=== PATIENT | female | born 1975 | race Native Hawaiian/Other Pacific Islander ===

== ENCOUNTER 2018-05-24 08:13 | Day surgery (SDC) | payer OTHER ==
[2018-05-18 10:03] VITALS: BMI 22.3
[2018-05-24 09:05] VITALS: RESP 18
[2018-05-24] MEDS ORDERED: Lactated Ringer's 1,000 ML IV ONE ×2 (09:15→11:40)
[2018-05-24 09:42] LABS: BASO # 0.1 K/uL (0.0-0.2); BASO % 0.8 % (0.0-2.0); EOS # 0.1 K/uL (0.0-0.7); EOS % 1.6 % (0.0-4.0); HEMOGLOBIN 13.9 g/dL (12.0-16.0); LYMPH # 1.8 K/uL (1.0-4.3); LYMPH % 27.3 % (20.0-40.0); MEAN CELL VOLUME 88.5 fl (81.0-99.0); MEAN PLATELET VOLUME 8.1 fl (7.2-11.7); MONO # 0.4 K/uL (0.0-0.8); MONO % 6.4 % (0.0-10.0); NEUT # 4.1 K/uL (1.8-7.0); NEUT % 63.9 % (50.0-75.0); RBC 4.63 Mil/uL (3.80-5.20); RED CELL DISTRIBUTION WIDTH 13.2 % (11.5-14.5); WHITE BLOOD COUNT 6.5 K/uL (4.8-10.8)
[2018-05-24] MEDS ORDERED: Rocuronium 10 mg/ml (5 ml) ONE (11:00)
[2018-05-24] MEDS ORDERED: Midazolam 2 MG/2 ML VIAL ONE (11:00)
[2018-05-24] MEDS ORDERED: Propofol 10 mg/ml Inj (20 ML) ONE (11:00)
[2018-05-24] MEDS ORDERED: Neostigmine 1:1000 (1 mg/ml) Inj ONE (11:09)
[2018-05-24] MEDS ORDERED: Bupivacaine HCl 0.25% PF (30 ml) Inj IJ ONE ×2 (12:00)
--- NOTE | 2018-05-24 13:20 | PCM.OP ---
Operative Report - Operative Report Date of Surgery/Procedure: 05/24/18 Time of Surgery/Procedure: 12:00 Surgeon: Dr. Jonny Gabriel Precision Dyer: Dr. Hu Cavanaugh Anesthesia/Sedation: general/Dr. Ledesma Pre-Operative Diagnosis: abdominal pain and endometriosis Post-Operative Diagnosis: intestinal involvemnent Indication for Surgery: as above Operative Findings: as above Procedure/Operation Description: 1-Excision perirectsal endometeriosis. 2- Appendectomy. Brief History:This 44 year old woman was already brought to the OR by dr. Cavanaugh when her nored inrtestinal involvement requiring intraoperative general surgery consultation. Description of the Procedure: The patient was already brought to the OR by Dr. Cavanaugh (separate dictstion). After taking control of the roboti console the rectal lesion was incised circumferentially and with blunt and sharp dissection the lesion was excised en-bloc and sent to pathology separatetely. The appendix was retracted anteriorly and the mesentery wqas dessicated with monoploar cautery to the base. The appednix was ligated with threee 3-0 endoloops and rtranswected and sent to pathology separately. The operation was then tuerned back to Dr. Cavanaugh (separate dictation). Estimated Blood Loss: 4 cc Complications: none Discharge & Condition: stable
[2018-05-24] MEDS ORDERED: Oxycodone/Acetaminophen 5/325 mg Tab PO PRN (13:23)
[2018-05-24] MEDS ORDERED: Lactated Ringer's 1,000 ML IV SCH (13:30)
[2018-05-24] MEDS ORDERED: HYDROmorphone 0.5 mg/0.5 ml ISec IVP PRN (13:30)
[2018-05-24] MEDS ORDERED: Lactated Ringer's 1,000 ML IV PRN (13:30)
[2018-05-24] MEDS ORDERED: Oxycodone/Acetaminophen 5/325 mg Tab PO ONE (16:00)
[2018-05-24 18:41] VITALS: O2SAT 98
[2018-05-24 18:42] VITALS: BP 101/58; PULSE 69; TEMP 98.2
--- NOTE | 2018-05-25 11:11 | OP ---
PROCEDURE DATE: 05/24/2018 SURGEON: Hu Cavanaugh MD MERCHANDISE FLOW MANAGER: Jonny Gabriel MD ANESTHESIOLOGIST: Abel Rebollar MD ANESTHETIC: General Endo PREOPERATIVE DIAGNOSES: 1. Incapacitating pelvic pain. 2. Incapacitating abdominal pain. 3. Abnormal uterine bleeding. 4. History of pelvic endometriosis. 5. History of previous failed medical surgical therapy. 6. History of severe endometriosis and pelvic adhesions. 7. Gastrointestinal and genitourinary symptoms. 8. Rule out interstitial cystitis. 9. Adenomyosis. POSTOPERATIVE DIAGNOSES: 1. Incapacitating pelvic pain. 2. Incapacitating abdominal pain. 3. Abnormal uterine bleeding. 4. History of pelvic endometriosis. 5. History of previous failed medical surgical therapy. 6. History of severe endometriosis and pelvic adhesions. 7. Gastrointestinal and genitourinary symptoms. 8. Rule out interstitial cystitis. 9. Adenomyosis. 10. Severe pelvic endometriosis. 11. Ovarian adhesions. 12. Bowel adhesions. 13. Subseptate uterus. 14. Mild bilateral hydroureters. OPERATION PERFORMED: 1. Examination under anesthesia. 2. Video_assisted hysteroscopy. 3. Hysteroscopic septoplasty. 4. Robotic da Neda laparoscopy. 5. Enterolysis. 6. Bilateral ureterolysis. 7. Bilateral salpingo_ovariolytis. 8. Multiple peritoneal biopsies and excision of endometriosis. 9. Treatment of endometriosis. 10. Shaving of endometriosis of the bowel. 11. Cystoscopy. 12. Bilateral ureteral catheterization and injection of IC-Green dye. Dr. Gabriel from General Surgery was consulted to perform 1-excision perirectal endometriosis 2-appendectomy procedures and he will dictate that separately. COMPLICATIONS: None. SAMPLES: DRAINS: ESTIMATED BLOOD LOSS: Minimal. HISTORY: MD PROVIDES HISTORY FINDINGS: Genitalia: normal, external genitalia, cervix normal without lesions or polyps. Hysteroscopy showed evidence of a small septum of the fundus of the uterus and no other lesions visualized. Cystoscopy was performed to rule out endometriosis of bladder mucosa and also interstitial cystitis, also injury. The bladder was normal with no evidence of stone, trigonitis or cystitis. Positive jet flow visualized in both ureters. Laparoscopy was normal, gallbladder was normal, liver edges appeared to be normal. Ascending colon and transverse were normal. The appendix appeared to be abnormal with both fibrosis and thickening. There was evidence of severe adhesions, fibrosis and endometriosis of the rectovaginal septum and attachment of the bowel to the posterior aspect of the uterus and to both the right and left adnexa. Both ovaries were severely attached to the posterior aspect of the ureters with endometriosis and adhesions. Fallopian tubes appeared to have some inflammatory changes of adhesions, but overall appeared to be normal. Both ovaries appeared to be involved with scar. 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 There was also evidence of mild bilateral hydroureters. CONSENT: The patient had been thoroughly evaluated and counseled regarding pros and cons of the procedure, the reasonable alternative, and the possible complications. She understood and accepted the risks involved. Appropriate literature was provided to the patient. The patient was in understanding that given her history and presurgical exam, she knows that she was a high risk and average patient. She accepted all the risks involved and all the questions had been answered to her satisfaction. DESCRIPTION OF PROCEDURE: Initiation of the case: After adequate anesthesia was obtained, the patient was placed in the dorsal lithotomy position with extreme care of placement of the patient without hyperextension or hyperflexing the hips. At this point, the patient was prepped and draped, the surgeon was gowned and gloved. A time-out was taken according to the hospital procedure and the procedure was started. At this point, we performed the cystoscopy and bilateral ureteral catheterization. At this point we performed cystoscopy: A cystoscope was inserted into the bladder, under direct visualization and the bladder was visualized. The bladder was free of lesions, tumors. There was no evidence of interstitial cystitis, and there was only a mild amount of trigonitis. At this point, both ureters were identified and appeared to be in normal anatomical position. At this point, utilizing an open-ended 5-Ivorian catheter, the left ureter was catheterized all the way to the distal ureter, and a 5 mL of IC-Green were injected into the distal ureter. Similarly, on the contralateral ureter, the ureter was catheterized all the way to the distal ureter, and a 5 mL of IC-Green were injected into the distal ureter. At this point, the stents were removed, and the hysteroscope was removed and a 16-Ivorian Dewitt was placed into the bladder. At this point, we proceeded with a hysteroscopy: A speculum was placed in the vagina, and the anterior lip of the cervix was grasped. The cervix was dilated and a hysteroscope was inserted into the cavity. The cavity appeared to be of normal size, but there was evidence of a subseptum at the top of the uterus. At this point, we proceeded with excision of uterine septum. Once the septum was identified, the endoscopic scissors were inserted into the uterine cavity and a progressive dissection of the septum was performed with great care not to perforate the uterus and not to cause any bleeding. The procedure was basically bloodless and the septum was excised. At this point, we proceeded with placement of trocars and docking of the Da Neda Xi robot The surgeons were re-gowned and re-gloved, and an open laparoscopy was performed by making an incision below the umbilicus, and the fascia was incised, and the peritoneum was entered in the blunt fashion. The cannula was inserted and the abdomen was insufflated, and under direct visualization 3 additional ports were inserted, left upper quadrant, left mid quadrant and right upper quadrant. At this point, the da Neda Xi robot was brought into the field and docked, and the instruments were inserted under direct visualization. With extreme care not to injure the bowel or any other area. As per the dictation, the upper abdomen appeared to be normal with no evidence of any lesions. The pelvis had the findings described above, which included significant adhesions, fibrosis of the posterior cul-de-sac, significant endometriosis with deep endometriosis nodules. Both ovary adherent to both the ovarian fossas and the posterior aspect of the uterus with significant inflammatory changes. At this point, we proceeded with the left ureterolysis. The ureter appeared to dilated and it was clearly identified utilizing fluorescent technology. An incision was made on the peritoneum at the top of the pelvic brim, and incision was then carried down all the way opening the peritoneum and all the way down from the pelvic brim all the way down to the ovarian fossa extending the incision below the ovary. It was a progressive dissection where the ureter was progressively lateralized and the peritoneum medialized, thus freeing the ureter all the way down to the crossing of the uterine vessels. After this was done and the ureter was freed and lateralized and a large area of peritoneum, which had been opened up was excised and sent to pathology. At this point, after ureter had been identified, we were able to elevate the ovary and dissect it from the pelvic side wall in the ovarian fossa At this point, we proceeded with the left ovariolysis. The ovary was gently dissected and elevated off the ovarian fossa and area of fibrosis of endometriosis were exposed. At this point, we proceeded with the right ureterolysis. The ureter was identified and again utilizing florescent technology, the retroperitoneal space was entered and a full dissection was performed entering the retroperitoneal space and dissecting the ureter, removing the ureter laterally and the peritoneum medially. A full dissection was performed all the way down to the ovarian fossa, on the crossing of the uterine arteries. A large area of peritoneum containing endometriosis was also dissected and sent to Pathology. At this point, we proceeded with a right ovariolysis. The ovary was progressively elevated, areas of deep endometriosis and superficial endometriosis were dissected out and the ovary was finally elevated. At this point, we proceeded with a treatment of endometriosis and excision of endometriosis. On the left hand side, a large area of peritoneum, where containing endometriosis was excised in the ovarian fossa with the upper margin of the excision at the utero_ovarian ligament all the way down to the uterosacral ligament. Large areas of fibrosis were identified in posterior cul-de-sac and the rectovaginal space was affected with endometriosis and severe fibrosis. The rectovaginal area was then dissected and the space was opened, and we were able to dissect the rectum away from the posterior aspect of the cervix. Additional areas of endometriosis were dissected from the posterior aspect of the Uterus. At this point, we proceeded with excision of the endometriosis on the right hand side where similarly in a full excision of endometriosis was performed by performing incision from starting at the right utero_ovarian ligament all the way down to the right uterosacral ligament. At this point, Dr. Gabriel from General Surgery was called in and he performed excision perirectal endometriosis procedure, which she will dictate separately. At this point, it was checked for hemostasis and appeared to be excellent. All the endometriosis had been excised. At this point, we performed the ablation of inflamed peritoneum, utilizing the J_plasma device. There were inflammatory areas in the posterior aspect of the uterus, which were not endometriotic, but they were purely inflammatory and these were not excisable, as they were not endometriotic. Therefore, we proceeded with ablation of such area utilizing the J plasma. Once this was done, it was checked for hemostasis and appeared to be excellent. The consult was handed to Dr. Gabriel, who performed the appendectomy and he will dictate that separately. After this was done, it was checked for hemostasis and appeared to be excellent. The pelvis was irrigated. The da Neda Xi robot was removed. The abdomen desufflated. The instruments were removed. The incisions were closed in layers with 0 PDS for the fascia and 4-0 Monocryl for the skin. The patient was awakened up and taken to recovery room in excellent condition. Hu Cavanaugh MD [facility]
== END 2018-05-24 19:20 | disposition home or self-care (01) ==
LOC: H.OPSURG 08:13
PROVIDERS: ATTEND Obstetrics & Gynecology Reproductive Endocrinology
DX: R10.2 Pelvic and perineal pain (principal); D21.9 Benign neoplasm of connective and other soft tissue, unspecified; D26.0 Other benign neoplasm of cervix uteri; N93.8 Other specified abnormal uterine and vaginal bleeding; N80.3 Endometriosis of pelvic peritoneum; N80.0 Endometriosis of uterus; K37 Unspecified appendicitis
CPT/HCPCS: 36415; 44970; 50949; 52005; 85025; 86850; 86900; 88302; 88305; C1729; J0131; J0690; J1170; J1885; J2001; J2250; J2405; J2704; J2710; J2765; J3010; J7030; J7120